=== PATIENT | female | born 1940 | race Caucasian/White ===

== ENCOUNTER 2016-08-28 08:30 | Observation (INO) | payer MEDICARE, BC ==
[2016-08-28 09:09] LABS: Hematocrit 33.4 % (37.0-47.0); Hemoglobin 10.3 gm/dL (12.5-16.0); Mean Cell Volume 95.7 fl (78-100); Mean Corpuscular Hemoglobin 29.5 pg (27-31); Mean Corpuscular Hgb Conc 30.8 g/dl (32-36); Mean Platelet Volume 8.6 fl (6.0-9.5); Neutrophil # 3.6 K/mm3 (1.3-6.0); Neutrophil % 69.1 % (42-75.0); Platelet Count 171 K/mm3 (150-450); Red Blood Count 3.49 M/mm3 (4.2-5.4); Red Cell Distribution Width 13.8 % (11.5-14.0); White Blood Count 5.2 K/mm3 (4.0-10.5)
[2016-08-28 09:31] LABS: Albumin * 3.4 gm/dl (3.4-5.0); Anion Gap 13.1 mmol/L (6.8-13.8); BUN/Creatinine Ratio 23.2 (9.0-21.6); Bilirubin, Total 0.5 mg/dL (0.0-1.1); Ca. Corrected For Albumin 9.9 mg/dL (8.4-10.2); Calcium * 9.7 mg/dL (7.9-10.9); Carbon Dioxide 29.4 mmol/L (24-32.6); Potassium 4.5 mmol/L (3.4-4.6); Total Protein 7.3 gm/dL (6.2-8.2); Troponin I 0.038 ng/ml (0.00-0.10)
[2016-08-28 10:30] LABS: Urine Bilirubin Negative (NEGATIVE); Urine Blood Negative /ul (NEGATIVE); Urine Ketone Negative (NEGATIVE); Urine Protein Negative (NEGATIVE); Urine Urobilinogen Normal (NORMAL); Urine pH 6.5 pH (5.0-7.0)
[2016-08-28 10:38] LABS: Urine Appearance Clear; Urine Bacteria 1+; Urine Color Yellow; Urine Nitrite Positive (NEGATIVE); Urine RBC None Seen /hpf (0-5)
--- NOTE | 2016-08-28 11:16 | ERNOTE ---
Syncope ER HPI Date of Service: 08/28/16 Stated Complaint: DR VARELA. Syncope Time Seen by Provider: 08/28/16 08:51 Source: patient Exam Limitations: no limitations Immunizations: IMMUNIZATION HX Immunizations Up to Date Yes History of Influenza Vaccine Yes Hx Pneumococcal Vaccination Yes Allergies/Adverse Reactions: Allergies fluorescein Allergy (Verified 08/28/16 08:35) Home Medications: HOME MEDICATIONS Albuterol Sulfate [Proair Respiclick] 90 mcg IH BID 10/03/15 [Last Taken Unknown ] Amlodipine Besylate 10 mg PO DAILY 10/03/15 [Last Taken Unknown] Ascorbic Acid [Vitamin C] 1,000 mg PO DAILY 10/03/15 [Last Taken Unknown] Aspirin [Aspirin EC] 81 mg PO DAILY 10/03/15 [Last Taken Unknown] Atorvastatin Calcium 40 mg PO DAILY 10/03/15 [Last Taken Unknown] Carvedilol [Coreg] 6.25 mg PO BID 10/03/15 [Last Taken Unknown] Clopidogrel Bisulfate [Plavix] 75 mg PO DAILY 10/03/15 [Last Taken Unknown] Ferrous Sulfate [Iron] 65 mg PO BID 10/03/15 [Last Taken Unknown] Gabapentin 300 mg PO HS 10/03/15 [Last Taken Unknown] Insulin Glargine,Hum.rec.anlog [Lantus Solostar] 10 unit SQ HS 10/03/15 [Last Taken Unknown] Insulin Lispro [Humalog Kwikpen U-100] 7 unit SQ QAM 10/03/15 [Last Taken Unknown] Isosorbide Mononitrate [Imdur] 120 mg PO DAILY 10/03/15 [Last Taken Unknown] Meclizine HCl [Antivert] 25 mg PO TID PRN #20 tab 10/03/15 [Last Taken Unknown] Multivitamin [Poly-Vitamin] 1 tab PO DAILY 10/03/15 [Last Taken Unknown] Tolterodine Tartrate [Detrol LA] 4 mg PO DAILY 10/03/15 [Last Taken Unknown] hydrALAZINE HCL [Apresoline] 100 mg PO TID 10/03/15 [Last Taken Unknown] Cholecalciferol (Vitamin D3) [Vitamin D3] 2,000 unit PO DAILY 12/23/15 [Last Taken Unknown] Insulin Lispro [Humalog Kwikpen U-100] 1 - 5 unit SQ AC 12/23/15 [Last Taken Unknown] Insulin Lispro [Humalog Kwikpen U-100] 4 unit SQ DAILY@1200 12/23/15 [Last Taken Unknown] Insulin Lispro [Humalog Kwikpen U-100] 7 unit SQ QPM 12/23/15 [Last Taken Unknown] Acetaminophen [Tylenol] 650 mg PO Q6H PRN #30 tablet 12/25/15 [Last Taken Unknown] Nitroglycerin [Nitrostat] 0.4 mg SL Q5MIN PRN 01/20/16 [Last Taken Unknown] Bumetanide [Bumex] 1 mg PO DAILY #7 tablet 05/08/16 [Last Taken Unknown] Budesonide/Formoterol Fumarate [Symbicort 160-4.5 Mcg Inhaler] 2 puff IH BID [Last Taken Unknown] Triamcinolone Acetonide [Kenalog 0.1%] 1 appl TP BID PRN #1 tube 06/27/16 [Last Taken Unknown] - History of Present Illness Narrative: I was called to PT for a patient who had passedout. She had been walking with the bars and had a brief syncopal episode. No injuries. She states she feels weak all over and feels lightheaded and dizzy. No spinning. She has been helped to a chair. No CO or SOB. No abdominal pain. No focal N/T/W. She had a BP 70 systolic. Brought to the ED. She denies pain, only Sx is generalized weakness and lightheadedness. Prior Episodes: Present: other - She denies feeling like this before. Symptoms prior to episode: Present: light headedness Activity at time of episode: Present: standing Character of event: Present: brief (seconds) Location of Injury: Present: none Current Symptoms: Present: other - generalized weakness and dizziness. Prior Treament: Denies: currently on antibiotics Review of Systems - Review of Systems Constitutional: Absent: fever ENT: Absent: sore throat Respiratory: Absent: shortness of breath Cardiology: Absent: chest pain Gastrointestinal/Abdominal: Absent: abdominal pain Genitourinary: Absent: dysuria All Other Systems: All systems neg except as marked - Patient's Past Medical History Patient History - Medical: Diabetes Type 2, Diabetes Type 2 Insulin Dependent, Renal Disease, Renal Failure Patient History - Cardiac/Respiratory: COPD, Hypertension, Hyperlipidemia, Home O2 Use Patient History - Cancer: No Hx of Cancer Patient History - Surgical Procedures: , Other Patient History - Other: Hx or Current Neutropenia - Family History Mother Family History - Medical: , Alzheimer's Disease, Diabetes Type 2 Family History - Cardiac/Respiratory: CHF, COPD, Hypertension Father Family History - Medical: Family History - Cardiac/Respiratory: Myocardial Infarction - Social History Living Situations: home Abuse History: No History of abuse Psych History: No pertinent hx Smoking Status: Never smoker Have you smoked in the past 12 months: No Alcohol Use: none Drug Use: none - Immunizations Immunizations Up to Date: Yes Hx Pneumococcal Vaccination: Yes History of Influenza Vaccine: Yes Physical Exam - Physical Exam General Appearance: Present: alert, no apparent distress, other - lethargic. Somewhat slow to respond to questioning. Eye Exam: Normal inspection: bilateral, PERRL: bilateral Ears, Nose, Throat: Present: normal ENT inspection Neck: Present: normal inspection Respiratory: Present: no respiratory distress, normal breath sounds, no accessory muscle use, lungs clear Cardiovascular/Chest: Present: regular rate, rhythm, normal peripheral pulses Gastrointestinal/Abdominal: Present: normal bowel sounds, nontender, soft. Absent: tenderness Back Exam: Absent: CVA tenderness (R), CVA tenderness (L) Extremity Exam: Present: other - no injury or deformity noted. Neurological Exam: Present: alert, normal mood/affect, no motor/sensory deficits , other - Finger to nose equal and symmetric. Generalized weakness but no unilateral focal motor or sensory deficits. NIH - 0 at this time Skin Exam: Absent: skin rash ED Progress - Results and Orders Patient's Lab Results:: I have reviewed the patient's lab results. - Vital Signs Patient's Vital Signs:: I have reviewed the patient's vital signs. Vital Signs: Vital Signs 08/28/16 08/28/16 08/28/16 08:32 08:39 09:15 Temperature 34.9 C L Pulse Rate 56 L 54 L Respiratory 11 L Rate Blood Pressure 152/43 154/40 O2 Sat by Pulse 100 Oximetry 08/28/16 08/28/16 08/28/16 09:30 09:50 10:29 Temperature Pulse Rate 52 L 52 L 52 L Respiratory 13 11 L 14 Rate Blood Pressure 189/58 185/58 194/59 O2 Sat by Pulse 99 100 100 Oximetry 08/28/16 10:45 Temperature Pulse Rate 48 L Respiratory 10 L Rate Blood Pressure 185/61 O2 Sat by Pulse 100 Oximetry - EKG EKG: other - Sinus bradycardia. No STEMI, non-specific ST/T wave changes. EKG read: Reviewed by me - X-Ray X-Ray #1 X-Ray: chest Interpretation: Reviewed by me X-ray Comments: I reviewed CXR report by radiology. - CT/Ultrasound CT/Ultrasound Narrative: CT head CT report reviewed. - Progress/Reassessment Chief Complaint: Syncopal Episode Progress:: Improved Progress Note-Subjective: 08/28/16 11:14 Patient still with generalized weakness. Will treat for UTI. She feels too weak to go home. No clinical or CT findings of stroke. BP improved. IV fluiids gently given. D/W Dr Wilson who will admit obs for further evaluation and management. Departure Clinical Impression: Generalized weakness, Syncope, UTI (urinary tract infection), Renal insufficiency - Departure Disposition: [facility]
[2016-08-28] MEDS: hydrALAZINE HCL 50 MG TABLET PO SCH ×2 (12:57→21:18)
[2016-08-28] MEDS: NORMAL SALINE 1,000 ML IV PRN (13:05)
[2016-08-28] MEDS ORDERED: NITROGLYCERIN 0.4 MG/TAB BTL SL PRN (13:05)
[2016-08-28] MEDS ORDERED: traMADol HCL 50 MG TABLET PO PRN (13:17)
[2016-08-28] MEDS ORDERED: hydrALAZINE HCL 50 MG TABLET PO SCH (13:30)
[2016-08-28] MEDS: ALBUTEROL SULFATE 2.5 MG/0.5 ML VIAL.NEB IH SCH ×3 (14:05→22:05)
--- NOTE | 2016-08-28 15:51 | HP ---
Chief Complaint - Chief Complaint Date of Service: 08/28/16 Time of Service: 15:40 Chief Complaint: syncope and weakness History of Present Illness: Jessie Wetzel, is a 76-year-old white female, with previous medical history of diabetes mellitus type 2 hypertension, diabetic neuropathy with retinopathy, chronic renal failure stage IV who was admitted today for observation on 2016 for a syncopal episode. Patient was doing the physical therapy and was walking along the bars when she felt weak and felt she was going to pass out . Dr. Deshpande was called. Upon assessment, she was found to have a blood pressure of 70 and a blood sugar of 49 on blood draw. She was still feeling weak despite her blood pressure responding to IV fluid . She was given orange juice and was admitted to the floor for observation . She denied any chest pain , shortness of breath, palpitations.She denied any blanketing of vision or abnormal twitches. Her chest x-ray showed no acute cardiopulmonary findings her EKG showed sinus bradycardia. - Patient's Past Medical History Patient History - Medical: Anemia, Diabetes Type 2, Diabetes Type 2 Insulin Dependent, Renal Disease, Renal Failure, Other Patient History - Cardiac/Respiratory: CHF, COPD, Hypertension, Hyperlipidemia, Home O2 Use, CPAP/BiPAP Home Use, Sleep Apnea Patient History - Cancer: Melanoma, Skin Patient History - Surgical Procedures: Cataracts, Cholecystectomy, Colonoscopy, Cardiac stent, , Other Patient History - Other: Hx or Current Neutropenia LMP (females 10-50): Menopausal - Family History Mother Family History - Medical: , Alzheimer's Disease, Diabetes Type 2 Family History - Cardiac/Respiratory: CHF, COPD, Hypertension Father Family History - Medical: Family History - Cardiac/Respiratory: Myocardial Infarction - Social History Living Situations: home Abuse History: No History of abuse Psych History: No pertinent hx Smoking Status: Never smoker Have you smoked in the past 12 months: No Alcohol Use: none Drug Use: none - Immunizations Immunizations Up to Date: Yes Hx Pneumococcal Vaccination: Yes History of Influenza Vaccine: Yes Review Of Systems (GEN) - Review of Systems Generalized/Overall Review: Present: Weakness. Absent: Chills, Fever EENTM: Present: No Symptoms Reported Respiratory: Absent: Cough, Shortness of Breath Cardiac: Absent: Chest Pain, Edema, Palpitations Abdominal: Absent: Nausea, Vomiting Genitourinary: Absent: Urgency, Frequency Musculoskeletal: Present: Joint Pain Immunizations: IMMUNIZATION HX Immunizations Up to Date Yes History of Influenza Vaccine Yes Hx Pneumococcal Vaccination Yes Allergies/Adverse Reactions: Allergies Allergy/AdvReac Type Severity Reaction Status Date / Time fluorescein Allergy Verified 08/28/16 08:35 Home Medications: HOME MEDICATIONS Albuterol Sulfate [Ventolin HFA] 2 puff IH Q4H 08/28/16 [Last Taken Unknown] Albuterol Sulfate/Ipratropium [Duoneb 2.5-0.5MG/3ML Soln] 3 ml IH BID 08/28/16 [ Last Taken Unknown] Ascorbic Acid [Vitamin C] 1,000 mg PO DAILY 08/28/16 [Last Taken Unknown] Aspirin 81 mg PO DAILY 08/28/16 [Last Taken Unknown] Atorvastatin Calcium [Lipitor] 40 mg PO HS 08/28/16 [Last Taken Unknown] Bumetanide [Bumex] 1 mg PO DAILY 08/28/16 [Last Taken Unknown] Carvedilol [Coreg] 6.25 mg PO BID 08/28/16 [Last Taken Unknown] Clopidogrel Bisulfate [Plavix] 75 mg PO DAILY 08/28/16 [Last Taken Unknown] Darbepoetin Chandana in Polysorbat [Aranesp] 0.45 mcg SQ Q28D 08/28/16 [Last Taken Unknown] Ferrous Sulfate 325 mg PO BID 08/28/16 [Last Taken Unknown] Gabapentin 300 mg PO HS 08/28/16 [Last Taken Unknown] Hydralazine HCl 100 mg PO TID 08/28/16 [Last Taken Unknown] Insulin Aspart [Novolog Flexpen] 5 unit SQ 1200 08/28/16 [Last Taken Unknown] Insulin Aspart [Novolog Flexpen] 7 unit SQ 1700 08/28/16 [Last Taken Unknown] Isosorbide Mononitrate [Isosorbide Mononitrate ER] 120 mg PO DAILY 08/28/16 [ Last Taken Unknown] Meclizine HCl [Bonine] 25 mg PO TID PRN 08/28/16 [Last Taken Unknown] Multivitamin [Poly-Vitamin] 1 each PO DAILY 08/28/16 [Last Taken Unknown] Nitroglycerin [Nitrostat] 0.4 mg SL Q5MIN PRN 08/28/16 [Last Taken Unknown] Tolterodine Tartrate [Detrol LA] 4 mg PO HS 08/28/16 [Last Taken Unknown] Tramadol HCl [Rybix Odt] 50 mg PO Q4H PRN 08/28/16 [Last Taken Unknown] Triamcinolone Acetonide [Kenalog 0.1%] 15 gm TP BID PRN 08/28/16 [Last Taken Unknown] Ciprofloxacin HCl [Cipro] 250 mg PO BID #6 tablet 08/29/16 [Last Taken Unknown] Insulin Aspart [Novolog Flexpen] 7 unit SQ 0700 #1 insuln.pen 08/29/16 [Last Taken Unknown] Insulin Glargine,Hum.rec.anlog [Lantus Solostar] 16 unit SQ HS #1 insuln.pen 03/07 [Last Taken Unknown] Exam - Exam Vital Signs: Vital Signs - Last Taken Temp 36.5 C 08/28/16 14:40 Pulse 50 L 08/28/16 14:40 Resp 16 08/28/16 14:40 BP 188/58 08/28/16 14:40 Pulse Ox 98 08/28/16 14:40 Constitutional: Present: Alert, Oriented x3, Cooperative, Elderly ENT Exam: Present: hearing grossly normal Eye Exam: bilateral eye: normal inspection, PERRL, EOMI Neck: Present: supple Back Exam: Present: no CVA tenderness Breasts: Present: Exam deferred Respiratory: Present: decreased breath sounds, No rales, No wheezing Cardiovascular/Chest: Present: regular rate, rhythm, no JVD, no murmur Abdomen: Present: Normal bowel sounds, soft, nontender, nondistended Extremity: Present: no pedal edema, no calf tenderness Diagnostic Studies: Laboratory Results WBC 5.2 K/mm3 (4.0-10.5) 08/28/16 09:07 RBC 3.49 M/mm3 (4.2-5.4) L 08/28/16 09:07 Hgb 10.3 gm/dL (12.5-16.0) L 08/28/16 09:07 Hct 33.4 % (37.0-47.0) L 08/28/16 09:07 MCV 95.7 fl (78-100) 08/28/16 09:07 MCH 29.5 pg (27-31) 08/28/16 09:07 MCHC 30.8 g/dl (32-36) L 08/28/16 09:07 RDW 13.8 % (11.5-14.0) 08/28/16 09:07 Plt Count 171 K/mm3 (150-450) 08/28/16 09:07 MPV 8.6 fl (6.0-9.5) 08/28/16 09:07 Immature Gran % (Auto) 0.40 % (0.001-0.429) 08/28/16 09:07 Immature Gran # (Auto) 0.02 K/mm3 (0.000-0.0310) 08/28/16 09:07 Neutrophils % 69.1 % (42-75.0) 08/28/16 09:07 Lymphocytes % 20.2 % (20-51) 08/28/16 09:07 Monocytes % 7.0 % (0.0-9) 08/28/16 09:07 Eosinophils % 2.7 % (0.0-3.0) 08/28/16 09:07 Basophils % 0.6 % (0.0-1.0) 08/28/16 09:07 Nucleated RBC % 0.0 k/mm3 (0-1) 08/28/16 09:07 Neutrophils # 3.6 K/mm3 (1.3-6.0) 08/28/16 09:07 Lymphocytes # 1.0 k/mm3 (1.5-3.5) L 08/28/16 09:07 Monocytes # 0.4 k/mm3 (0.0-1.0) 08/28/16 09:07 Eosinophils # 0.1 k/mm3 (0.0-0.7) 08/28/16 09:07 Absolute Basophils 0.0 k/mm3 (0.0-0.1) 08/28/16 09:07 Sodium 144 mmol/L (132-142) H 08/28/16 09:07 Plasma Sodium 143 mmol/L (130-142) H 08/28/16 09:07 Potassium 4.5 mmol/L (3.4-4.6) 08/28/16 09:07 Chloride 106 mmol/L (97-106) 08/28/16 09:07 Carbon Dioxide 29.4 mmol/L (24-32.6) 08/28/16 09:07 Anion Gap 13.1 mmol/L (6.8-13.8) 08/28/16 09:07 BUN 53 mg/dL (3-23) H 08/28/16 09:07 Creatinine 2.28 mg/dL (0.4-1.4) H 08/28/16 09:07 Est GFR (Non-Af Amer) 22 mL/min (60-130) L 08/28/16 09:07 BUN/Creatinine Ratio 23.2 (9.0-21.6) H 08/28/16 09:07 Random Glucose 49 mg/dL (70-110) L 08/28/16 09:07 Lactic Acid, Venous 1.3 mmol/L (0.4-2.0) 08/28/16 09:07 Calcium 9.7 mg/dL (7.9-10.9) 08/28/16 09:07 Calcium Adj for Albumin 9.9 mg/dL (8.4-10.2) 08/28/16 09:07 Total Bilirubin 0.5 mg/dL (0.0-1.1) 08/28/16 09:07 AST 17 U/L (0-48) 08/28/16 09:07 ALT 17 U/L (19-67) L 08/28/16 09:07 Alkaline Phosphatase 76 U/L (50-170) 08/28/16 09:07 Troponin I 0.038 ng/ml (0.00-0.10) 08/28/16 09:07 Total Protein 7.3 gm/dL (6.2-8.2) 08/28/16 09:07 Albumin 3.4 gm/dl (3.4-5.0) 08/28/16 09:07 Urine Color Yellow 08/28/16 10:15 Urine Appearance Clear 08/28/16 10:15 Urine pH 6.5 pH (5.0-7.0) 08/28/16 10:15 Ur Specific [place] 1.010 SP.GR. (1.005-1.010) 08/28/16 10:15 Urine Protein Negative mg/dL (NEGATIVE) 08/28/16 10:15 Urine Glucose (UA) Negative mg/dL (NEGATIVE) 08/28/16 10:15 Urine Ketones Negative mg/dL (NEGATIVE) 08/28/16 10:15 Urine Blood Negative /ul (NEGATIVE) 08/28/16 10:15 Urine Nitrate Positive (NEGATIVE) H 08/28/16 10:15 Urine Bilirubin Negative mg/dl (NEGATIVE) 08/28/16 10:15 Urine Urobilinogen Normal EU/dl (NORMAL) 08/28/16 10:15 Ur Leukocyte Esterase 75 /ul (NEGATIVE) H 08/28/16 10:15 Urine RBC None seen /hpf (0-5) 08/28/16 10:15 Urine WBC 5-10 /hpf (0-5) H 08/28/16 10:15 Ur Epithelial Cells None seen /hpf (0-5) 08/28/16 10:15 Urine Bacteria 1+ (NONE) H 08/28/16 10:15 Urine Culture Comments Culture to follow 08/28/16 10:15 Assessment/Plan - Assessment/Plan (1) Pre-syncope Problem: Acute (2) Hypoglycemia Problem: Acute (3) Generalized weakness Problem: Acute (4) UTI (urinary tract infection) Problem: Acute (5) CRF (chronic renal failure) Problem: Chronic Qualifiers: (6) Diabetes mellitus Problem: Chronic Qualifiers: (7) HTN (hypertension) Problem: Chronic Qualifiers:
[2016-08-28] MEDS ORDERED: INSULIN ASPART SQ SCH (17:00)
[2016-08-28] MEDS: INSULIN LISPRO 100 UNITS/ML VIAL SC SCH (17:02)
[2016-08-28] MEDS: ALBUTEROL SULFATE/IPRATROPIUM 3 ML NEBU IH SCH (18:13)
[2016-08-28] MEDS ORDERED: TOLTERODINE TARTRATE 4 MG CAPSULE PO SCH (21:00)
[2016-08-28] MEDS ORDERED: INSULIN GLARGINE SQ SCH (21:00)
[2016-08-28] MEDS ORDERED: GABAPENTIN 300 MG CAPSULE PO SCH (21:00)
[2016-08-28] MEDS: FERROUS SULFATE 325 MG TABLET PO SCH (21:19)
[2016-08-28] MEDS: CARVEDILOL 6.25 MG TABLET PO SCH (21:19)
[2016-08-29] MEDS: NORMAL SALINE 1,000 ML IV PRN (01:21)
[2016-08-29] MEDS: ALBUTEROL SULFATE 2.5 MG/0.5 ML VIAL.NEB IH SCH ×2 (02:06→06:08)
[2016-08-29] MEDS: hydrALAZINE HCL 50 MG TABLET PO SCH (04:57)
[2016-08-29 05:49] LABS: Hematocrit 31.3 % (37.0-47.0); Hemoglobin 9.7 gm/dL (12.5-16.0); Mean Cell Volume 95.7 fl (78-100); Mean Corpuscular Hemoglobin 29.7 pg (27-31); Mean Platelet Volume 8.7 fl (6.0-9.5); Neutrophil # 3.8 K/mm3 (1.3-6.0); Neutrophil % 70.1 % (42-75.0); Platelet Count 158 K/mm3 (150-450); Red Blood Count 3.27 M/mm3 (4.2-5.4); Red Cell Distribution Width 13.7 % (11.5-14.0); White Blood Count 5.4 K/mm3 (4.0-10.5)
[2016-08-29 06:03] LABS: Anion Gap 14.5 mmol/L (6.8-13.8); BUN/Creatinine Ratio 21.4 (9.0-21.6); Calcium * 8.8 mg/dL (7.9-10.9); Carbon Dioxide 26.2 mmol/L (24-32.6); Estimated Creat Clear 23.7; Potassium 4.7 mmol/L (3.4-4.6)
[2016-08-29] MEDS: ALBUTEROL SULFATE/IPRATROPIUM 3 ML NEBU IH SCH ×2 (06:07→06:08)
[2016-08-29] MEDS: INSULIN LISPRO 100 UNITS/ML VIAL SC SCH (06:27)
[2016-08-29] MEDS ORDERED: INSULIN ASPART SQ SCH ×2 (07:00→12:00)
--- NOTE | 2016-08-29 07:55 | DS ---
(1) Pre-syncope Problem: Acute (2) Hypoglycemia Problem: Acute (3) Generalized weakness Problem: Acute (4) UTI (urinary tract infection) Problem: Acute (5) CRF (chronic renal failure) Problem: Chronic Qualifiers: (6) Diabetes mellitus Problem: Chronic Qualifiers: (7) HTN (hypertension) Problem: Chronic Qualifiers: Description of Stay: Jessie Wetzel, is a 76-year-old white female, with previous medical history of diabetes mellitus type 2 hypertension, diabetic neuropathy with retinopathy, chronic renal failure stage IV who was admitted today for observation on 2016 for a syncopal episode. Upon reinterviewing the patient, she says she was doing physical therapy and was walking along the bars when she felt weak and felt she was going to pass out . She says she did not really pass out completely. huy Deshpande was called. Upon assessment, she was found to have a blood pressure of 70 and a blood sugar of 49 on blood draw. She was still feeling weak despite her blood pressure responding to IV fluid . She was given orange juice and was admitted to the floor for observation . She denied any chest pain, shortness of breath, palpitations.She denied any blanketing of vision or abnormal twitches. Her chest x-ray showed no acute cardiopulmonary findings her EKG showed sinus bradycardia. She has not had any episode since admission. She has been in and out of her room with assist w/o dizziness or lightheadedness. Her BS have in the 100's and BP slightly high . She is stable to be discharged today. Procedures Performed: none Discharge Disposition: Home self care Disposition: Home self-care Condition: Fair Discharge Activity: Activity as tolerated Discharge Diet: Consistent carbs Problem Oriented Discharge Instructions to Patient/Family: Urinary Tract Infection, Adult, [id number], Syncope, [id number] Additional Patient Instructions (free text): Follow up with PCP in 1 week. on August at 1:45 PM [facility] Courtesy visit. Please fax orders upon discharge. Prescriptions (Any new or edited meds): Ciprofloxacin HCl [Cipro] 250 mg PO BID #6 tablet Insulin Aspart [Novolog Flexpen] 7 unit SQ 0700 #1 insuln.pen Insulin Glargine,Hum.rec.anlog [Lantus Solostar] 16 unit SQ HS #1 insuln.pen Complete Home Medications List: Complete Home Medication List: Albuterol Sulfate [Ventolin HFA] 2 puff IH Q4H 08/28/16 Albuterol Sulfate/Ipratropium [Duoneb 2.5-0.5MG/3ML Soln] 3 ml IH BID 08/28/16 Ascorbic Acid [Vitamin C] 1,000 mg PO DAILY 08/28/16 Aspirin 81 mg PO DAILY 08/28/16 Atorvastatin Calcium [Lipitor] 40 mg PO HS 08/28/16 Bumetanide [Bumex] 1 mg PO DAILY 08/28/16 Carvedilol [Coreg] 6.25 mg PO BID 08/28/16 Clopidogrel Bisulfate [Plavix] 75 mg PO DAILY 08/28/16 Darbepoetin Chandana in Polysorbat [Aranesp] 0.45 mcg SQ Q28D 08/28/16 Ferrous Sulfate 325 mg PO BID 08/28/16 Gabapentin 300 mg PO HS 08/28/16 Hydralazine HCl 100 mg PO TID 08/28/16 Insulin Aspart [Novolog Flexpen] 5 unit SQ 1200 08/28/16 Insulin Aspart [Novolog Flexpen] 7 unit SQ 1700 08/28/16 Isosorbide Mononitrate [Isosorbide Mononitrate ER] 120 mg PO DAILY 08/28/16 Meclizine HCl [Bonine] 25 mg PO TID PRN 08/28/16 Multivitamin [Poly-Vitamin] 1 each PO DAILY 08/28/16 Nitroglycerin [Nitrostat] 0.4 mg SL Q5MIN PRN 08/28/16 Tolterodine Tartrate [Detrol LA] 4 mg PO HS 08/28/16 Tramadol HCl [Rybix Odt] 50 mg PO Q4H PRN 08/28/16 Triamcinolone Acetonide [Kenalog 0.1%] 15 gm TP BID PRN 08/28/16 Ciprofloxacin HCl [Cipro] 250 mg PO BID #6 tablet 08/29/16 Insulin Aspart [Novolog Flexpen] 7 unit SQ 0700 #1 insuln.pen 08/29/16 Insulin Glargine,Hum.rec.anlog [Lantus Solostar] 16 unit SQ HS #1 insuln.pen 03/07
[2016-08-29] MEDS ORDERED: ASCORBIC ACID 500 MG TABLET PO SCH (09:00)
[2016-08-29] MEDS ORDERED: CLOPIDOGREL BISULFATE 75 MG TABLET PO SCH (09:00)
[2016-08-29] MEDS ORDERED: ASPIRIN 81 MG TAB.CHEW PO SCH (09:00)
[2016-08-29] MEDS ORDERED: ISOSORBIDE MONONITRATE 120 MG TAB.SR.24H PO SCH (09:00)
[2016-08-29] MEDS ORDERED: MULTIVITAMINS 1 CAP CAPSULE PO SCH (09:00)
[2016-08-29] MEDS: FERROUS SULFATE 325 MG TABLET PO SCH (09:06)
[2016-08-29] MEDS: CARVEDILOL 6.25 MG TABLET PO SCH (09:08)
[2016-08-29 10:17] VITALS: BP 128/74
== END 2016-08-29 10:25 | disposition home or self-care (01) ==
LOC: ER 08:30 → MS 11:08
PROVIDERS: ADMIT Internal Medicine; ATTEND Internal Medicine
DX: R55 Syncope and collapse (principal); E16.2 Hypoglycemia, unspecified; R53.1 Weakness; N39.0 Urinary tract infection, site not specified; N18.9 Chronic kidney disease, unspecified; E11.9 Type 2 diabetes mellitus without complications
CPT/HCPCS: 36415; 70450; 71020; 80048; 80053; 81001; 83605; 84484; 85025; 87086; 93005; 94640; 94660; 96365; 96372; 99283; G0378